=== PATIENT | female | born 1985 | race Caucasian/White ===

== ENCOUNTER 2023-12-28 08:41 | Emergency (ER) | payer BC, OTHER ==
[~2023-12-28] VITALS: Ht 157.5 cm; Wt 121.6 kg
[2023-12-28 09:38] VITALS: BP 144/100; RESP 20; TEMP 98.8; O2SAT 96
[2023-12-28 09:42] VITALS: PULSE 71
[2023-12-28] MEDS: KETOROLAC TROMETH 60MG/2ML VIAL IM ONE (09:44)
[2023-12-28] MEDS ORDERED: KETOROLAC TROMETH 60MG/2ML VIAL IM ONE (10:45)
[2023-12-28] MEDS ORDERED: SODIUM CHLORIDE 0.9% 1,000 ML IV ONE (10:45)
[2023-12-28 11:25] LABS: Basophils # (auto) 0.1 10 ^3/uL (0-0.2); Eosinophils # (auto) 0.2 10 ^3/uL (0-0.8); Hematocrit 40.5 % (36.0-46.0); Hemoglobin 13.4 g/dL (12.2-16.2); Lymphocytes # (auto) 2.8 10 ^3/uL (0.4-5.4); Lymphocytes % (auto) 27.9 % (10.0-50.0); Mean Corpuscular Hemoglobin 28.4 pg (28.0-32.0); Mean Corpuscular Hgb Conc. 33.1 g/dL (32.0-36.0); Mean Corpuscular Volume 85.8 fL (80.0-100.0); Monocytes # (auto) 0.6 10 ^3/uL (0-1.3); Monocytes % (auto) 5.5 % (0.0-12.0); Neutrophils # (auto) 6.4 10 ^3/uL (1.6-8.6); Neutrophils % (auto) 63.6 % (37.0-80.0); Nucleated Red Blood Cells % 0.1 %; Platelet Count (auto) 307 10^3/uL (140-450); Red Blood Cells 4.71 10^6/uL (4.0-5.20); White Blood Cell 10.1 10^3/uL (4.4-10.8)
[2023-12-28 11:32] LABS: Chloride 106 mmol/L (98-107); Potassium 3.9 mmol/L (3.5-5.1); Sodium 137 mmol/L (136-145)
[2023-12-28 11:33] LABS: Anion Gap 4 (5-15); Calcium 9.8 mg/dL (8.7-10.4); Carbon Dioxide 27 mmol/L (20-30)
[2023-12-28 11:38] LABS: Blood Urea Nitrogen 9 mg/dL (9-23); Glucose 92 mg/dL (74-106)
[2023-12-28] MEDS ORDERED: IBUP-1456 PO (11:51)
[2023-12-28] MEDS ORDERED: METH-1182 PO (11:51)
== END 2023-12-28 11:57 | disposition home or self-care (01) ==
LOC: ER 08:41
DX: R07.89 Other chest pain (principal); Z79.899 Other long term (current) drug therapy
CPT/HCPCS: 36415; 71046; 80048; 84484; 85025; 93005; 96372; 99285; J1885